=== PATIENT | male | born 1990 | race African-American/Black ===

== ENCOUNTER 2023-09-28 02:36 | Emergency (ER) | payer SELFPAY ==
[~2023-09-28] VITALS: Ht 175.3 cm; Wt 87.0 kg
[2023-09-28 02:57] VITALS: BP 179/89; PULSE 106; RESP 18; TEMP 98; O2SAT 99
[2023-09-28] MEDS ORDERED: TOPUD MT (03:35)
[2023-09-28] MEDS ORDERED: EFIN4SOL TP (03:35)
== END 2023-09-28 06:32 | disposition left against medical advice (07) ==
LOC: ER 02:36
DX: B35.1 Tinea unguium (principal); M79.673 Pain in unspecified foot; F19.10 Other psychoactive substance abuse, uncomplicated; E11.9 Type 2 diabetes mellitus without complications; Z86.73 Personal history of transient ischemic attack (TIA), and cerebral infarction without residual deficits
CPT/HCPCS: 99281